=== PATIENT | male | born 1955 | race African-American/Black ===

== ENCOUNTER 2017-09-13 02:06 | Inpatient (IN) | payer OTHER ==
[~2017-09-13] VITALS: Ht 167.6 cm; Wt 57.3 kg
[2017-09-13] MEDS ORDERED: ACETAMINOPHEN 325 MG TAB PO PRN (04:30)
[2017-09-13] MEDS ORDERED: MAGNESIUM HYDROXIDE SUSP 30 ML CUP PO PRN (04:30)
[2017-09-13] MEDS ORDERED: hydrOXYzine HCL 50 MG TAB PO PRN ×2 (04:30→10:30)
[2017-09-13] MEDS ORDERED: diphenhydrAMINE HCL 50 MG CAP - HS PRN PO (04:30)
[2017-09-13] MEDS ORDERED: ALUMINUM/MAGNESIUM/SIMETH 30 ML CUP PO PRN (04:30)
[2017-09-13] MEDS ORDERED: diphenhydrAMINE HCL 50 MG/ML VIAL - HS PRN IM (04:30)
[2017-09-13 05:13] VITALS: BP 147/69; PULSE 70; RESP 18; TEMP 97.9; O2SAT 96
[2017-09-13] MEDS ORDERED: TRAM50TA PO (06:37)
[2017-09-13] MEDS ORDERED: IBUP1TAB7 PO (06:37)
[2017-09-13 06:58] VITALS: BP 147/69; PULSE 70; RESP 18; TEMP 97.9; O2SAT 95
[2017-09-13] MEDS: NICOTINE 21 MG/24 HR PATCH T-DERMAL SCH (09:00)
[2017-09-13] MEDS ORDERED: LORazepam 1 MG TAB PO PRN (10:30)
[2017-09-13] MEDS ORDERED: LORazepam 2 MG TAB PO PRN (10:30)
[2017-09-13] MEDS ORDERED: FLUMAZENIL 0.5 MG/5 ML VIAL IV PUSH PRN (10:30)
[2017-09-13] MEDS ORDERED: LORazepam 2 MG/ML VIAL IV PUSH PRN ×4 (10:30)
--- NOTE | 2017-09-13 10:32 | HHI.HP ---
Provisional Diagnosis Admission Date September 13, 2017 at 03:50 Hallam I. Adjustment disorder with mixed disturbances of emotion and conduct, polysubstance abuse Certification of Person's Competence To Provide Express and Informed Consent I have personally examined Ivan Lawrence , a person being served at [facility] on, September 13, 2017 10:21. Express and informed consent means consent voluntarily given in writing, by a competent person, after sufficient explanation and disclosure of the subject matter involved to enable the person to make a knowing and willful decision without any element of force, fraud, deceit, duress, or other form of constraint or coercion. This person is 18 years of age or older, is not now known to be incompetent to consent to treatment with a guardian advocate, and does not have a health care surrogate or proxy currently making medical treatment decisions. I have found this person to be one of the following: [xxdx] Competent to provide express and informed consent, as defined above, for voluntary admission to this facility and is competent to provide express and informed consent for treatment. He/she has the consistent capacity to make well reasoned, willful, and knowing decisions concerning his or her medical or mental health treatment. The person fully and consistently understands the purpose of the admission for examination/placement and is fully capable of personally exercising all rights assured under [place] Incompetent to provide express and informed consent to voluntary admission, and this is incompetent to provide express and informed consent to treatment. The person must be transferred to involuntary status and a petition for a guardian advocate filed with the Circuit Court. [] Refusing to provide express and informed consent to voluntary admission but is competent to provide express and informed consent for treatment. The person must be discharged or transferred to involuntary status. Form shall be completed within 24 hours of a person's arrival at the receiving facility and filed in the clinical record of each person: 1. Admitted on a voluntary basis 2. Permitted to provide express and informed consent to his/her own treatment 3. Allowed to transfer from involuntary to voluntary status 4. Prior to permitting a person to consent to his or her own treatment after having been previously found incompetent to consent to treatment. History of Present Illness Capacity: Has Capacity HPI Patient is a 62-year-old -Burmese male who comes here from [facility], where he was initially brought there under a Noguera act signed by the [facility]'s office dated 09/12/17 at 6:40 PM that document reviewed essentially states Ivan Lawrence advised he believes everyone is "out to get him" and wants to hurt him he stated he has not been taking his medication or eating properly Ivan stated due to his medical issues he wants to hurt himself unknown waves/meetings patient was seen screen at that facility and toxicology positive for benzodiazepines and cocaine, but negative for alcohol. Patient was medically cleared at that that facility and transported here under the Noguera act. At the present time patient sitting in the radford patient seen with nurse Eryn, patient calm and cooperative stating he is homeless has been homeless intermittently for many years. Has been having stress with the people he associates with acknowledging that her misuse of drugs. He also acknowledges that he has been a cocaine abuser for a number of years more recently. He also acknowledges past marijuana use. He acknowledges being an alcoholic. His last drink yesterday. He acknowledges being in a detox program number of years ago. That he has had legal issues related to his drug use. He is vague about any other psychiatric hospitalizations she is somewhat vague about his history of incarcerations. He states there is some mental health issues in his family of origin. He denies any physical or sexual abuse. He says he does have a though he is estranged from her. Patient is vague about any prior medical history though there is some medication record trying he may have been multiple medications in the past. He is on nothing right now. We will have her hospitalist service adjust this with him. Patient is vague about suicidality today. He seems sincere in wishing to find some stability in his life. We did discuss sober free living houses in this area in the he appears to be interested in them. We will have our counselor talked to them about places such as [facility] [employer]. If this time patient does meet criteria for inpatient psychiatric hospitalization. I feel he does have capacity less I will lift the Noguera act allow her to sign voluntary. We will have a hospitalist consult with us, we will start the patient on Remeron 15 mg at at bedtime. Place him on the ciwa protocol. Hope this to be short stay him can find an appropriate placement for this man Review of Systems Except as stated in HPI: all other systems reviewed are Neg Past Psych History Psychological trauma history Patient denies Violence risk - others (6 mos) Low Violence risk - self (6 mos) Low to moderate Substance Abuse History Drugs/Alcohol past 12 months Active alcohol cocaine and benzodiazepine abuser Past Family Social History Coded Allergies: No Known Allergies (Unverified , 09/13/17) Reported Medications Tramadol (Tramadol) 50 Mg Tab, 50 MG PO Q6H Y for PAIN, TAB 0 Refills 09/13/17 Ibuprofen (Ibuprofen) 800 Mg Tab, 800 MG PO Q6HR Y for PAIN, #40 TAB 0 Refills 09/13/17 Current Medications Medications (Trade) Dose Ordered Sig/Susan Route Start Time Stop Time Status Last Admin (Atarax) 50 mg Q6H PRN PO 09/13/17 04:30 (Benadryl) 50 mg HS PRN PO 09/13/17 04:30 (Benadryl Inj) 50 mg HS PRN IM 09/13/17 04:30 (Tylenol) 650 mg Q4H PRN PO 09/13/17 04:30 (Milk Of Magnesia Liq) 30 ml DAILY PRN PO 09/13/17 04:30 (Mag-Al Plus Susp Liq) 30 ml Q6H PRN PO 09/13/17 04:30 (Habitrol 21 Mg Patch.24 Hr) 1 patch DAILY T-DERMAL 09/13/17 09:00 Miscellaneous Information 1 HS T-DERMAL 09/13/17 21:00 Family Psych History Patient states he had a sister with mental illness Social History Patient homeless at this time Patient's Strengths (min. 2) Patient verbal able access healthcare Physical Exam Patient medically cleared [facility] At the present time patient standing with me in the radford is in no acute distress, is in no respiratory distress, no complaints of chest pain or abdominal pain. Patient moving all 4 extremities without difficulty. No abnormal motor movements noted Vital Signs Vital Signs Date Time Temp Pulse Resp B/P (MAP) Pulse Ox O2 Delivery O2 Flow Rate FiO2 09/13/17 06:58 97.9 70 18 147/69 (95) 95 Mental Status Examination Appearance: Appropriate Consciousness: Alert Orientation: x4 Motor Activity: Normal gait Speech: Unremarkable Language: Adequate Fund of Knowledge: Adequate Attention and Concentration: Adequate Memory: Unremarkable Mood: Other (Informed to mildly dysphoric) Affect: Other (Decreased range and intensity) Thought Process & Associations: Intact Thought Content: Appropriate Hallucination Type: None Delusion Type: None Suicidal Ideation: No Suicidal Plan: No Suicidal Intention: No Homicidal Ideation: No Homicidal Plan: No Homicidal Intention: No Insight: Fair Judgment: Impulsive Assessment & Plan Problem List: (1) Adjustment disorder with mixed disturbance of emotions and conduct ICD Codes: F43.25 - Adjustment disorder with mixed disturbance of emotions and conduct (2) Polysubstance abuse ICD Codes: F19.10 - Other psychoactive substance abuse, uncomplicated Assessment & Plan Estimated LOS: 5-7 days patient remained somewhat depressed though suicidality is softer while he is here. He does meet criteria for inpatient care though I feel he has capacity thus I will lift Noguera act. We will have hospitalist consult will S. We will have counselor discuss with him the possibility of sober for living situations locally Discharge Planning Discuss and explore sober living facilities locally Request HC Surrog/Guard Advoc?: No Gregg Hui MD September 13, 2017 10:32
[2017-09-13] MEDS ORDERED: cloNIDine HCL 0.1 MG TAB PO PRN (11:30)
[2017-09-13] MEDS ORDERED: ALBUTEROL SULFATE 90 MCG/ACT HFA 8 GM INHALER INH PRN (11:30)
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
[2017-09-13] MEDS ORDERED: THIAMINE HCL 100 MG TAB PO ONE (11:45)
[2017-09-13] MEDS ORDERED: FOLIC ACID 1 MG TAB PO ONE (11:45)
[2017-09-13 13:33] VITALS: BP 145/82; PULSE 114; RESP 20; O2SAT 98
[2017-09-13 17:51] VITALS: BP 140/80; PULSE 90; RESP 18; TEMP 98.2; O2SAT 96
[2017-09-13] MEDS: REMOVE OLD NICOTINE PATCH T-DERMAL SCH (21:00)
[2017-09-14 06:04] VITALS: BP 187/87; PULSE 102; RESP 18; TEMP 97.3
[2017-09-14] MEDS: NICOTINE 21 MG/24 HR PATCH T-DERMAL SCH (09:00)
[2017-09-14] MEDS: MULTIVITAMIN TAB PO SCH (09:00)
[2017-09-14] MEDS: FOLIC ACID 1 MG TAB PO SCH (09:00)
[2017-09-14] MEDS: THIAMINE HCL 100 MG TAB PO SCH (09:00)
[2017-09-14 15:49] VITALS: BP 174/88; PULSE 86; RESP 18; TEMP 97.8; O2SAT 99
--- NOTE | 2017-09-14 16:34 | HHI.PYPN ---
Subjective Remarks Patient seen in his room with nurse Noa, patient in bed covers to his chin. Chart reviewed, patient complaint medications, patient discussed with nurse. Patient will behavior problems lately somewhat isolated in his room. However this may be an adaptive behavior considering the acuity in the close quarters on the unit. He is vague about suicidality today says his mood is somewhat better. He is still considering and looking for a sober living facility for now continue treatment Review of Systems Except as stated in HPI: all other systems reviewed are Neg Mental Status Examination Appearance: Appropriate Consciousness: Alert Orientation: x4 Motor Activity: Normal gait Speech: Unremarkable Language: Adequate Fund of Knowledge: Adequate Attention and Concentration: Adequate Memory: Unremarkable Mood: Other (Informed to mildly dysphoric) Affect: Other (Decreased range and intensity) Thought Process & Associations: Intact Thought Content: Appropriate Hallucination Type: None Delusion Type: None Suicidal Ideation: No Suicidal Plan: No Suicidal Intention: No Homicidal Ideation: No Homicidal Plan: No Homicidal Intention: No Insight: Fair Judgment: Impulsive Results Vitals/IOs Vital Signs Date Time Temp Pulse Resp B/P (MAP) Pulse Ox O2 Delivery O2 Flow Rate FiO2 09/14/17 15:49 97.8 86 18 174/88 (116) 99 Assessment & Plan Problem List: (1) Adjustment disorder with mixed disturbance of emotions and conduct ICD Codes: F43.25 - Adjustment disorder with mixed disturbance of emotions and conduct (2) Polysubstance abuse ICD Codes: F19.10 - Other psychoactive substance abuse, uncomplicated Assessment & Plan Estimated LOS: days patient continues depressed but improving is still vague suicidality, his affect is slightly improved. Continues to work on placement issues Justification for Cont. Inpt. At this time patient would decompensate a place to a lower level of care Discharge Planning Continue to look for sober living facility Request HC Surrog/Guard Advoc?: No Gregg Hui MD September 14, 2017 16:34
[2017-09-14] MEDS: REMOVE OLD NICOTINE PATCH T-DERMAL SCH (21:00)
[2017-09-15 06:18] VITALS: BP 151/75; PULSE 100; RESP 18; TEMP 97.6; O2SAT 98
[2017-09-15] MEDS: MULTIVITAMIN TAB PO SCH (08:36)
[2017-09-15] MEDS: THIAMINE HCL 100 MG TAB PO SCH (08:36)
[2017-09-15] MEDS: FOLIC ACID 1 MG TAB PO SCH (08:36)
[2017-09-15] MEDS ORDERED: amLODIPine BESYLATE 5 MG TAB PO SCH (09:30)
[2017-09-15] MEDS: NICOTINE 21 MG/24 HR PATCH T-DERMAL SCH (09:59)
--- NOTE | 2017-09-15 13:26 | HHI.PYPN ---
Subjective Remarks Patient seen and radford with floor staff, chart reviewed, patient complaint medications, patient discussed with nurse. Patient calm and cooperative says he has been making attempts to find sober living facility. He is no behavior problems, but does isolate somewhat to his room. He denies suicidality today denies voices today. For now continue treatment Review of Systems Except as stated in HPI: all other systems reviewed are Neg Mental Status Examination Appearance: Appropriate Consciousness: Alert Orientation: x4 Motor Activity: Normal gait Speech: Unremarkable Language: Adequate Fund of Knowledge: Adequate Attention and Concentration: Adequate Memory: Unremarkable Mood: Other (Informed to mildly dysphoric) Affect: Other (Decreased range and intensity) Thought Process & Associations: Intact Thought Content: Appropriate Hallucination Type: None Delusion Type: None Suicidal Ideation: No Suicidal Plan: No Suicidal Intention: No Homicidal Ideation: No Homicidal Plan: No Homicidal Intention: No Insight: Fair Judgment: Impulsive Results Vitals/IOs Vital Signs Date Time Temp Pulse Resp B/P (MAP) Pulse Ox O2 Delivery O2 Flow Rate FiO2 09/15/17 06:18 97.6 100 18 151/75 (100) 98 Assessment & Plan Problem List: (1) Adjustment disorder with mixed disturbance of emotions and conduct ICD Codes: F43.25 - Adjustment disorder with mixed disturbance of emotions and conduct (2) Polysubstance abuse ICD Codes: F19.10 - Other psychoactive substance abuse, uncomplicated Assessment & Plan Estimated LOS: days patient somewhat calmer today does deny suicidality today, complaint medications, continues to explore sober living resources Justification for Cont. Inpt. At this time patient would decompensate the place to a lower level of care Discharge Planning To be determined exploring various sober living facilities Request HC Surrog/Guard Advoc?: No Gregg Hui MD September 15, 2017 13:26
[2017-09-15 17:35] VITALS: BP 171/77; PULSE 107; RESP 17; TEMP 97.7; O2SAT 99
[2017-09-15 17:36] VITALS: BP 159/83; PULSE 109; RESP 17; O2SAT 99
[2017-09-15 18:05] VITALS: BP 159/83; PULSE 109; RESP 18; O2SAT 99
[2017-09-15] MEDS: REMOVE OLD NICOTINE PATCH T-DERMAL SCH (20:42)
[2017-09-16 06:18] VITALS: BP 165/92; PULSE 105; RESP 17; TEMP 98.1; O2SAT 95
[2017-09-16] MEDS: MULTIVITAMIN TAB PO SCH (09:16)
[2017-09-16] MEDS: FOLIC ACID 1 MG TAB PO SCH (09:16)
[2017-09-16] MEDS: THIAMINE HCL 100 MG TAB PO SCH (09:16)
[2017-09-16] MEDS: NICOTINE 21 MG/24 HR PATCH T-DERMAL SCH (09:16)
[2017-09-16] MEDS ORDERED: FOLI1TAB6 PO (16:07)
[2017-09-16] MEDS ORDERED: THIA100 PO (16:07)
[2017-09-16] MEDS ORDERED: AMLO10 PO (16:07)
--- NOTE | 2017-09-16 16:10 | HHI.DS ---
Psychiatry Discharge Summary Inpatient Psychiatric care?: Yes Advance Directive: No Reason Not Provided: Due to Patient Condition Mental Health AdvanceDirective: No Health Care Proxy: No Admission Admission Date September 13, 2017 at 03:50 Admission Diagnosis: (1) Adjustment disorder with mixed disturbance of emotions and conduct ICD Code: F43.25 - Adjustment disorder with mixed disturbance of emotions and conduct (2) Polysubstance abuse ICD Code: F19.10 - Other psychoactive substance abuse, uncomplicated Brief History Patient is a 62-year-old -Nauruan male who comes here from [facility], where he was initially brought there under a Noguera act signed by the [facility]'s office dated 09/12/17 at 6:40 PM that document reviewed essentially states Ivan Lawrence advised he believes everyone is "out to get him" and wants to hurt him he stated he has not been taking his medication or eating properly Ivan stated due to his medical issues he wants to hurt himself unknown waves/meetings patient was seen screen at that facility and toxicology positive for benzodiazepines and cocaine, but negative for alcohol. Patient was medically cleared at that that facility and transported here under the Noguera act. At the present time patient sitting in the radford patient seen with nurse Eryn, patient calm and cooperative stating he is homeless has been homeless intermittently for many years. Has been having stress with the people he associates with acknowledging that her misuse of drugs. He also acknowledges that he has been a cocaine abuser for a number of years more recently. He also acknowledges past marijuana use. He acknowledges being an alcoholic. His last drink yesterday. He acknowledges being in a detox program number of years ago. That he has had legal issues related to his drug use. He is vague about any other psychiatric hospitalizations she is somewhat vague about his history of incarcerations. He states there is some mental health issues in his family of origin. He denies any physical or sexual abuse. He says he does have a though he is estranged from her. Patient is vague about any prior medical history though there is some medication record trying he may have been multiple medications in the past. He is on nothing right now. We will have her hospitalist service adjust this with him. Patient is vague about suicidality today. He seems sincere in wishing to find some stability in his life. We did discuss sober free living houses in this area in the he appears to be interested in them. We will have our counselor talked to them [facility] If this time patient does meet criteria for inpatient psychiatric hospitalization. I feel he does have capacity less I will lift the Noguera act allow her to sign voluntary. We will have a hospitalist consult with us, we will start the patient on Remeron 15 mg at at bedtime. Place him on the ciwa protocol. Hope this to be short stay him can find an appropriate placement for this man Tobacco Use In Past 30 Days: 5 or More Cigarettes/Day Alcohol Use: 2-3 Times Per Week Hospital Course Patient hospital course was uneventful, he was calm isolating a perhaps somewhat manipulative desire for services. In the way it appears she was looking for us to find him an apartment. This is opposed to an IRENE and she declined. In any event he denies suicidality homicidality voices or visions. At this time we feel patient reached maximum benefit of this hospitalization. Thus will be discharged today to himself. Rx 1 month. Refer to the homeless [facility]. Results Blood Pressure 165 / 92 Vital Signs Date Time Temp Pulse Resp B/P (MAP) Pulse Ox O2 Delivery O2 Flow Rate FiO2 09/16/17 06:18 98.1 105 17 165/92 (116) 95 Please see EMR Summary of Procedures None done Pending results at discharge: No Medications # of Antipsychotic meds at D/C: 0 Approp Antipsych med options 1 - Minimum of three failed multiple trials of monotherapy. 2 - Documented plan to taper to monotherapy due to previous use of multiple meds OR cross-taper in progress at D/C. 3 - Documentation of augmentation of Clozapine. 4 - Justification other than those listed in allowable values 1-3, document here : Discharge Discharge Date: Sep 16, 2017 Discharge Diagnosis: (1) Polysubstance abuse Diagnosis: Secondary ICD Code: F19.10 - Other psychoactive substance abuse, uncomplicated (2) Adjustment disorder with mixed disturbance of emotions and conduct Diagnosis: Principal ICD Code: F43.25 - Adjustment disorder with mixed disturbance of emotions and conduct Pt Condition on Discharge: Stable Discharge Disposition: Discharge Home Discharge Instructions Diet Instructions: As Tolerated, No Restrictions Activities you can perform: Regular-No Restrictions Scheduled Appointment: William Hollingsworth (Absolute abstinence) Discharge Time > 30 minutes Mental Status Examination Appearance: Appropriate Consciousness: Alert Orientation: x4 Motor Activity: Normal gait Speech: Unremarkable Language: Adequate Fund of Knowledge: Adequate Attention and Concentration: Adequate Memory: Unremarkable Mood: Other (Informed to mildly dysphoric) Affect: Other (Decreased range and intensity) Thought Process & Associations: Intact Thought Content: Appropriate Hallucination Type: None Delusion Type: None Suicidal Ideation: No Suicidal Plan: No Suicidal Intention: No Homicidal Ideation: No Homicidal Plan: No Homicidal Intention: No Insight: Fair Judgment: Impulsive Discharge/Advance Care Plan Health Problems: (1) Adjustment disorder with mixed disturbance of emotions and conduct (2) Polysubstance abuse Goals to promote your health * To prevent worsening of your condition and complications * To maintain your health at the optimal level Directions to meet your goals Take your medications as prescribed Follow your dietary instruction Follow activity as directed Keep your appointments as scheduled Take your immunizations and boosters as scheduled If your symptoms worsen call your PCP, if no PCP go to Urgent Care Center or Emergency Room For 08/11 questions related to your inpatient stay or results of tests pending at discharge, please contact Dr. Gregg Hui at Smoking is Dangerous to Your Health. Avoid second hand smoking Gregg Hui MD Sep 16, 2017 16:10
== END 2017-09-16 17:25 | disposition home or self-care (01) | DRG 882 ==
LOC: H270 02:55 → UNDOADMIN 02:55 → H270 03:50
PROVIDERS: ADMIT Psychiatry & Neurology Psychiatry; ATTEND Psychiatry & Neurology Psychiatry
DX: F43.25 Adjustment disorder with mixed disturbance of emotions and conduct (principal); I10 Essential (primary) hypertension; F14.10 Cocaine abuse, uncomplicated; F12.90 Cannabis use, unspecified, uncomplicated; F17.200 Nicotine dependence, unspecified, uncomplicated; J44.9 Chronic obstructive pulmonary disease, unspecified; F10.20 Alcohol dependence, uncomplicated; Z59.0 Homelessness
CPT/HCPCS: Q0163